=== PATIENT | male | born 1985 | race Caucasian/White ===

== ENCOUNTER 2021-06-09 16:39 | Emergency (ER) | payer OTHER, SELFPAY ==
[2021-06-09 17:04] VITALS: BP 149/101; PULSE 105; RESP 16; TEMP 36.9; O2SAT 96; BMI 44.3
[2021-06-09 19:57] VITALS: BP 147/111; PULSE 103; RESP 28; O2SAT 95
[2021-06-09 20:01] VITALS: BP 146/94
[2021-06-09 20:03] VITALS: O2SAT 95
--- NOTE | 2021-06-09 20:31 | ED_ITS ---
HPI - COVID General: Chief Complaint: COVID symptoms Stated Complaint: COVID EXPOSURE/SOB/FEVER Time Seen by Provider: 06/09/21 19:46 Triage information: Has fever, cough or shortness of breath . Exposure to COVID + person last 14 days History of Present Illness: HPI Narrative: Patient is a 35-year-old male comes to the ED after being exposed to Covid. Patient says he lives with his girlfriend who just tested positive for COVID-19. Today he noticed he developed a fever felt some mild occasional shortness of breath today. He also endorses having some mild body aches as well. Patient said he needed to be Covid tested for work. COVID 19 common symptoms: positive fever(s), dyspnea (Occasional) and body aches; negative chills, non-productive cough, productive cough, fatigue, headache(s), throat pain, nasal congestion, nausea, vomiting or diarrhea COVID 19 other sytmptoms: negative chest pain COVID Results: SARS-CoV-2 Antigen (Rapid) Negative (Negative) 06/09/21 20:08 06/09/21 Nasal/Oral Coronavirus 2019 PCR Pending 06/09/21 20:40 06/09/21 Review of Systems Const: Reports: fever(s) and body aches; Denies: chills or fatigue Eyes: Denies: change in vision or eye discomfort ENMT: Denies: throat pain, odynophagia, nasal discharge or nasal congestion Card: Denies: chest pain, palpitations, edema, swelling of feet/ankles, dyspnea on exertion or orthopnea Resp: Reports: dyspnea (Occasional); Denies: productive cough or non-productive cough GI: Denies: abdominal pain, nausea, vomiting, diarrhea, constipation or hematochezia : Denies: flank pain, difficulty urinating, dysuria or hematuria Musc: Denies: neck pain, back pain or extremity swelling Skin/Breast: Denies: rash or new lesions Neuro: Denies: headache(s), numbness in extremities or weakness in extremities Physical Exam Const: COMMON NORMALS: no acute distress, patient oriented x3 and alert GENERAL APPEARANCE: cooperative NUTRITIONAL APPEARANCE: obese HENMT: COMMON NORMALS: normocephalic HEAD & SCALP: normocephalic MOUTH: Normal oral and palatal mucosa present THROAT: posterior oropharynx normal and uvula midline Eye: COMMON NORMALS: Equal, round and reactive pupils present PUPIL: Yes Equal, round and reactive pupils present Neck/C-Spine: COMMON NORMALS: supple GENERAL: Yes normal visual inspection Resp: COMMON NORMALS: normal respiratory effort, No retractions, No use of accessory muscles and clear to auscultation bilaterally EFFORT & INSPECTION: Yes able to speak in complete sentences, No tachypneic, No respiratory distress and No labored AUSCULTATION: clear to auscultation bilaterally Cardio: COMMON NORMALS: regular rate, regular rhythm, S1 normal heart sound present, S2 normal heart sound present, No gallops present (Cardio), No clicks present (Cardio), No murmurs present (Cardio) and Peripheral pulses 2+ throughout RATE: regular rate RHYTHM: regular rhythm HEART SOUNDS: S1 normal heart sound present and S2 normal heart sound present PERIPHERAL PULSES: Peripheral pulses 2+ throughout GI: COMMON NORMALS: Normal to inspection, nondistended, normoactive bowel sounds present, Soft to palpation, non-tender and no masses PALPATION: Yes Soft to palpation : COMMON NORMALS: Yes no CVA tenderness BLADDER/KIDNEY EXAM: Yes no CVA tenderness Back/Pelvis: COMMON NORMALS: no CVA tenderness Extremity: COMMON NORMALS: normal to inspection Neuro: COMMON NORMALS: patient oriented x3 and moves all extremities SENSORIUM/ORIENTATION: Yes alert Skin: GENERAL SKIN EXAM: dry skin Course Vital Signs: Vital signs: Vital Signs Temperature 98.4 F 06/09/21 17:04 Pulse Rate 109 H 06/09/21 21:58 Respiratory Rate 19 H 06/09/21 21:58 Blood Pressure 150/90 06/09/21 21:58 Pulse Oximetry 93 06/09/21 21:58 MDM - COVID MDM Narrative: Medical decision making narrative: Patient is a 35-year-old male comes to the ED after being exposed to COVID-19. Patient's girlfriend just tested positive for COVID-19. Today he has experienced fever, body aches and has mild episodes of some shortness of breath. Vitals are stable. Exam shows obese 35-year-old male that is in no acute distress or pain. No signs of any acute respiratory distress. Lungs are clear to auscultation bilaterally. Influenza negative and rapid Covid test negative. Covid PCR is pending. Chest x-ray shows no acute findings. Patient was diagnosed with a viral syndrome and discharged home. He was told that lab will contact him with Covid PCR results in the next 2 to 3 days. Return to ED precautions given. Follow-up with PCP in 7 to 10 days for reevaluation. Patient understood agree with plan. Lab Data: Labs: Lab Results 06/09/21 06/09/21 20:08 20:08 Influenza Type A A g Negative (Negative) Influenza Type B A g Negative (Negative) SARS-CoV-2 Ag (Rap id) Negative (Negative) Imaging Data: CXR: Attestation: I personally reviewed and interpreted this imaging study as follows: My impression: Chest x-ray showed no acute findings. Radiologist's impression: [address] [id number] ReportSigned Patient: Maurice Puckett #: [id number]: 1985Acct#:[id number]/Sex: 35 / MADM Date: 06/09/21Loc: ERRoom/Bed:Attending Dr: Ordering Provider/Ordering MD: Hussein Osborne Date of Service: 06/09/21 Procedure(s): XR chest 1V portable [id number] Accession Number(s): [id number] Report Number: [id number] PROCEDURE INFORMATION: Exam: XR Chest Exam date and time: 06/09/2021 8:32 PM Age: 35 years old Clinical indication: Shortness of breath; Additional info: SOB TECHNIQUE: Imaging protocol: XR of the chest. Views: 1 view. COMPARISON: No relevant prior studies available. FINDINGS: Lungs: Unremarkable. No consolidation. Pleural spaces: Unremarkable. No pleural effusion. No pneumothorax. Heart/Mediastinum: Cardiomegaly. Bones/joints: Unremarkable. XR/XR chest 1V portable [id number] IMPRESSION: Cardiomegaly, lungs are clear Radiation Dose CTDIVOL = (mGy): DLP = (mGy-cm) Dictated By:Chris Beltran MDSigned By:Chris Beltran MDSigned Date/Time:06/09/211DD/ 31 COVID Results: SARS-CoV-2 Antigen (Rapid) Negative (Negative) 06/09/21 20:08 06/09/21 Nasal/Oral Coronavirus 2019 PCR Pending 06/09/21 20:40 06/09/21 Discharge Plan Discharge Patient Disposition: Home Clinical Impression: Viral syndrome Condition: Stable Discharge Orders: Discharge ED (Routine); Ordered 06/09/21 Ordered By: Hussein Osborne Discharge Diet: Regular Discharge Activity: Resume usual activity Patient Instructions: Viral Syndrome (ED) Activity Restrictions/Additional Instructions: Follow-up with medical provider as directed in 5 to 7 days reevaluation. The lab will contact you the next couple days to let you know about your COVID-19 PCR test results. If you do test positive talk to your primary care doctor about monoclonal antibody infusions. Take Tylenol or Motrin if you have any fevers. Return to the ER or your medical provider if condition worsens. Please read and understand discharge instructions. Thank you for choosing [facility] for your healthcare needs today. Please realize this is an emergency room and that we are providing you with a medical screening exam and this may not be complete and all inclusive of all the testing and or work up that you may need to determine your ailment or severity of your illness. It is very important that you follow up as instructed or that you return to the Emergency Department should you have concerns or if your cond ition changes or worsens in any way. Coding Level of Care Code ED Community Facilitator for Arnulfo Ying Exam Comprehensive
[2021-06-09 20:34] LABS: SARS Covid-2 Antigen Negative (Negative)
[2021-06-09 20:50] LABS: Influenza A by IFA Negative (Negative); Influenza B by IFA Negative (Negative)
[2021-06-09 21:58] VITALS: BP 150/90; PULSE 109; RESP 19; O2SAT 93
[2021-06-11 13:43] LABS: Coronavirus Test Green County Not Detected
== END 2021-06-09 21:59 | disposition home or self-care (01) ==
PROVIDERS: Physician Assistant; Emergency Provider Physician Assistant
DX: B34.9 Viral infection, unspecified (principal); Z20.822 Contact with and (suspected) exposure to COVID-19
CPT/HCPCS: 71045; 87426; 87635; 87804; 99283

== ENCOUNTER 2021-08-03 11:25 | Outpatient (CLI) | payer OTHER, SELFPAY ==
[2021-08-03 06:53] VITALS: BMI 44.3
[2021-08-03 11:35] VITALS: BP 119/81; PULSE 96; RESP 18; TEMP 36.8; O2SAT 96
[2021-08-03 12:39] VITALS: BP 105/98; PULSE 87; RESP 20; TEMP 36.2; O2SAT 98
[2021-08-03 12:46] VITALS: BP 105/98; PULSE 87; RESP 20; TEMP 36.2; O2SAT 97
--- NOTE | 2021-08-03 17:35 | PC.NURSE ---
Rapid Response; Pt given education, with consent forms signed. Infusion initiated after IV access obtained. Infusion completed over 30 mins as directed. After infusion completed, RN at pt's side obtaining post infusion VS. Pt VS stable, but pt color looked extremely pale compared to baseline assessment. Cardiac, respiratory, and neuro assessment completed. Pt A&O4, with verbalized c/o not feeling well with worsening feelings. RN remained at side, and instructed additional RN to call rapid response over head. Dr Carmen from ED, responded and came to pts' side. New instructions and recommendations for pt to be transported to ED for further evaluation of pt current condition, after assessment completed and update/hx given to MD. Pt taken to ED by ED staff X3 via wheelchair.
== END 2021-08-03 11:26 | disposition home or self-care (01) ==
LOC: OPS 11:28
PROVIDERS: Visit Provider Family Medicine
DX: U07.1 COVID-19 (principal)
CPT/HCPCS: 96365

== ENCOUNTER 2021-08-03 13:15 | Emergency (ER) | payer BC, SELFPAY ==
[2021-08-03 13:32] VITALS: BP 128/75; PULSE 94; RESP 18; O2SAT 93
[2021-08-03 13:35] VITALS: O2SAT 94
--- NOTE | 2021-08-03 13:47 | XR_ITS ---
WS: [id number] Exam: XR chest 1V portable [id number] Date/Time of Exam: 08/03/2021 1:47 PM Reason For Exam: sob covid + Comparison 06/09/2021. There are mild patchy groundglass infiltrates scattered throughout both lung suspicious for pneumonia . Cardiomediastinal silhouette is unremarkable for radiographic technique. No pneumothorax or pleural effusion. Regional bony elements are intact. Monitoring leads superimpose the chest. XR/XR chest 1V portable [id number] IMPRESSION: 1. Scattered mild groundglass densities in both lung suspicious for developing pneumonia.
--- NOTE | 2021-08-03 13:48 | W.ED.COVID ---
HPI - COVID General: Chief Complaint: COVID symptoms Stated Complaint: covid reaction Time Seen by Provider: 08/03/21 13:24 Triage information: Has fever, cough or shortness of breath. Exposure to COVID + person last 14 days History of Present Illness: HPI Narrative: 35-year-old male says he has been sick mainly since last 4 days ago. He tested positive for COVID-19 on Monday he complains of chills, fevers up to 102, and some shortness of breath at home. He has been monitoring his pulse ox, and it gets as low as 85, but comes back to the low to mid 90s usually. No vomiting. Has had a cough. He was in the infusion center today, getting the monoclonal antibody infusion, and began to get more short of breath, weak, and dizzy. He was sent here for evaluation MD complaint: known COVID positive Prior covid testing: yes, results known Prior testing date: 07/30/21 COVID 19 common symptoms: positive fever(s), chills, cough, non-productive cough, dyspnea, fatigue, body aches, headache(s), throat pain and nausea; negative vomiting or diarrhea COVID 19 other sytmptoms: positive chest pressure Onset (ago): day(s) Severity: moderate Pertinent comorbid conditions: obesity Treatment prior to arrival: acetaminophen and ibuprofen COVID Results: SARS-CoV-2 Antigen (Rapid) Negative (Negative) 06/09/21 20:08 06/09/21 Nasal/Oral Coronavirus 2019 PCR Not detected 06/09/21 20:40 06/09/21 Review of Systems Const: Reports: fever(s), chills, body aches and fatigue ENMT: Reports: throat pain Resp: Reports: dyspnea and non-productive cough GI: Reports: nausea; Denies: vomiting or diarrhea Neuro: Reports: headache(s) Physical Exam Const: COMMON NORMALS: patient oriented x3 and alert GENERAL APPEARANCE: cooperative NUTRITIONAL APPEARANCE: obese HENMT: COMMON NORMALS: normocephalic, atraumatic and Normal external nose present HEAD & SCALP: normocephalic and atraumatic FACE & SINUS: normal facial exam NOSE: Normal external nose present Chest: COMMONS NORMALS: normal inspection of the chest Resp: COMMON NORMALS: clear to auscultation bilaterally EFFORT & INSPECTION: Yes tachypneic and No respiratory distress AUSCULTATION: clear to auscultation bilaterally Cardio: COMMON NORMALS: regular rate and regular rhythm RATE: regular rate RHYTHM: regular rhythm GI: COMMON NORMALS: Normal to inspection, nondistended, normoactive bowel sounds present and Soft to palpation PALPATION: Yes Soft to palpation Neuro: COMMON NORMALS: patient oriented x3 SENSORIUM/ORIENTATION: Yes alert Course Vital Signs: Vital signs: Vital Signs Pulse Rate 94 08/03/21 13:32 Respiratory Rate 18 08/03/21 13:32 Blood Pressure 128/75 08/03/21 13:32 Pulse Oximetry 93 08/03/21 13:32 MDM - COVID MDM Narrative: Medical decision making narrative: Room air saturations have been 90 to 94% on room air here. His heart rate is around 100. He does look uncomfortable. No sign of toxic or allergic reaction. EKG shows sinus rhythm with nonspecific ST changes. There is no complaint of chest pain. His oxygen saturations on presentation to the infusion center were 85 to 86%. He has noticed these at home. He will go home on home oxygen. Treatment with dexamethasone, as his chest x-ray shows bilateral groundglass pneumonia. he knows to return for any worsening symptoms COVID Results: SARS-CoV-2 Antigen (Rapid) Negative (Negative) 06/09/21 20:08 06/09/21 Nasal/Oral Coronavirus 2019 PCR Not detected 06/09/21 20:40 06/09/21 Discharge Plan Discharge Patient Disposition: Home Clinical Impression: Pneumonia due to 2019 novel coronavirus Condition: Stable Prescriptions: New doxycycline hyclate 100 mg capsule 100 mg PO BID 7 Days Qty: 14 RF: 0 dexamethasone 6 mg tablet 6 mg PO DAILY Qty: 5 RF: 0 hydrocodone-acetaminophen 5-325 mg tablet 1 tab PO Q8H PRN (Reason: pain) Qty: 7 RF: 0 No Action metoprolol tartrate 100 mg tablet RF: 0 omeprazole 40 mg capsule,delayed release(DR/EC) RF: 0 clonidine HCl 0.2 mg tablet RF: 0 losartan 100 mg tablet RF: 0 Discharge Orders: Discharge ED (Routine); Ordered 08/03/21 Ordered By: Dyllan Dietrich Other Ambulatory Orders: DME: Oxygen (Order) Location: None Selected Ordered By: Dyllan Dietrich Patient Instructions: Opioid Safety Activity Restrictions/Additional Instructions: Home medical equipment will help set up your home oxygen. Medications as directed. Return for worsening shortness of breath despite treatment with oxygen and medication, chest discomfort, vomiting liquids or medications, lethargy, mental status changes, or any other concerning symptoms. Coding Level of Care Code ED Accounting Machine Operator for Arnulfo Fwd Exam Detailed
--- NOTE | 2021-08-03 13:51 | ECG_ITS ---
[facility] Test Date: 2021-08-03 Pat Name: Maurice Puckett Department: Room: Gender: Male Natural Gas Inspector: : 1985 Requested By: Dyllan Savage Order Number: [id number] Grant MD: Jese Mitchell M.D. Measurements Intervals [place] Rate: 96 P: 33 [place]: 170 QRS: 65 QRSD: 89 T: 31 QT: 328 QTc: 415 Interpretive Statements SINUS RHYTHM NONSPECIFIC T-WAVE ABNORMALITY No previous ECG available for comparison Electronically Signed On 08-04-2021 13:56:20 PARKS WORKER by Jese Mitchell M.D. [email or web address] [email or web address] [email or web address] [email or web address] [email or web address]/[id number]
[2021-08-03] MEDS: dexamethasone 4 mg Tablet 10 MG PO (14:38)
[2021-08-03] MEDS: diphenhydrAMINE 50 mg Capsule PO (14:39)
== END 2021-08-03 18:05 | disposition home or self-care (01) ==
PROVIDERS: Emergency Provider Emergency Medicine
DX: U07.1 COVID-19 (principal); J12.82 Pneumonia due to coronavirus disease 2019
CPT/HCPCS: 71045; 93005; 99283; J8540; Q0163

== ENCOUNTER 2022-03-08 10:53 | Emergency (ER) | payer BC, SELFPAY ==
[2022-03-08 10:59] VITALS: BP 152/97; PULSE 52; RESP 18; TEMP 36.8; O2SAT 100; BMI 43.7
[2022-03-08 11:03] VITALS: BP 150/80; PULSE 52; RESP 18; TEMP 36.8; O2SAT 100
--- NOTE | 2022-03-08 11:18 | W.ED.EXTPRO ---
HPI - Extremity Problem General: Chief complaint: Extremity Problem,Nontraumatic Stated complaint: Left Leg pain Time Seen by Provider: 03/08/22 11:08 Source: patient Mode of arrival: ambulatory Limitations: no limitations History of Present Illness: Patient is a nice 36-year-old male who presents to ED today with a complaint of left leg pain/burning. He states he is having burning to the posterior aspect of his left thigh and then states he feels like the anterior aspect of his leg from his knee to his ankle is numb. Patient does state recently he had an incident where the left knee buckled and gave out. He is status post ACL and MCL repair on the knee. He has not noticed any knee swelling. No swelling to the extremity. He has not noticed any color or temperature changes. He denies back pain. MD Complaint: extremity pain Onset (ago): day(s) Pain Consistency: constant Location: left and lower extremity Quality: burning Relieving factors: nothing and other Exacerbating factors: nothing Associated symptoms: Reports no associated symptoms; Deny chest pain or fever(s) Review of Systems Const: Denies: fever(s), chills, body aches, fatigue or malaise Card: Denies: chest pain Resp: Denies: dyspnea GI: Denies: abdominal pain : Denies: flank pain, dysuria or hematuria Musc: Reports: extremity pain; Denies: neck pain, back pain, extremity swelling, joint pain, joint swelling, joint redness or joint warmth Neuro: Reports: sensory changes; Denies: headache(s), weakness in extremities or difficulty walking Physical Exam Const: COMMON NORMALS: no acute distress, patient oriented x3, no limitations and alert GENERAL APPEARANCE: cooperative NUTRITIONAL APPEARANCE: obese Back/Pelvis: COMMON NORMALS: thoracic and lumbar spine normal to inspection, no thoracic nor lumbar tenderness and thoraco-lumbar ROM normal THORACIC SPINE/UPPER BACK: Yes normal to inspection and No thoracic spinal tenderness LUMBAR SPINE/LOWER BACK: Yes normal to inspection and No lumbar spinal tenderness PELVIS: Yes buttock abnormal Buttock abnormal laterality: left Left buttock abnormal details: tenderness SACROILIAC JOINTS: Yes SI joints normal SACRUM: no tenderness COCCYX: no tenderness Extremity: COMMON NORMALS: full ROM, capillary refill normal, no joint enlargement, no clubbing, cyanosis or edema, no calf tenderness and no pedal edema GENERAL: Yes normal exam except as noted LEFT LOWER EXTREMITY: Yes knee joint and Yes lower leg OTHER: previous scars to L knee from ligament repairs; no knee swelling, redness or warmth; no obvious joint laxity; no swelling/color/temp changes to L LE when compared to R; no calf swelling; negative Pema's; palpable DP/PT pulses with brisk cap refill; complains of altered sensation to anterior L LE from knee to ankle but otherwise sensation equal bilaterally Neuro: RACHANA COMA SCALE: document GCS findings Rachana coma scale eye opening: Spontaneous Rachana coma scale verbal response: Orientated Rachana coma scale motor response: Obey commands Rachana coma scale total score: 15 COMMON NORMALS: patient oriented x3, moves all extremities, no focal motor deficits and gait normal SENSORIUM/ORIENTATION: Yes alert Skin: COMMON NORMALS: no rashes or lesions noted GENERAL SKIN EXAM: no rashes or lesions noted Course Vital Signs: Vital signs: Vital Signs Temperature 98.2 F 03/08/22 12:17 Pulse Rate 55 L 03/08/22 12:17 Respiratory Rate 18 03/08/22 12:17 Blood Pressure 152/78 03/08/22 12:17 Pulse Oximetry 100 03/08/22 12:17 Oxygen Delivery Me thod 03/08/22 11:03 MDM - Extremity (Nontraumatic) Medical Decision Making Patient complains of a burning sensation to the posterior lateral aspect of his left leg and some altered sensation to the anterior aspect of the lower portion of the left leg. I do have any concern at this time for DVT, acute limb ischemia, CVA/TIA. Strength intact. Gait normal. Will treat with NSAIDS, muscle relaxers, steroids and recommend he follow up with PCP in 1-2 weeks if symptoms do not improve. Discharge Plan Discharge Patient Disposition: Home Clinical Impression: Acute left lumbar radiculopathy Condition: Stable Prescriptions: New methocarbamol 500 mg tablet 1,000 mg PO Q8H Qty: 30 0RF Medrol (Ken) 4 mg tablets,dose pack See Rx Instructions .ROUTE .COMPLEX Qty: 21 0RF Rx Instructions: orally per package directions diclofenac potassium 50 mg tablet 50 mg PO TID PRN (Reason: pain) Qty: 20 0RF Discontinued dexamethasone 6 mg tablet 6 mg PO DAILY Qty: 5 0RF hydrocodone-acetaminophen 5-325 mg tablet 1 tab PO Q8H PRN (Reason: pain) Qty: 7 0RF No Action metoprolol tartrate 100 mg tablet omeprazole 40 mg capsule,delayed release(DR/EC) clonidine HCl 0.2 mg tablet losartan 100 mg tablet Discharge Orders: Discharge ED (Routine); Ordered 03/08/22 Ordered By: Ilana Noriega Patient Instructions: Lumbar Radiculopathy (ED) Coding Level of Care Code ED Concrete Grinder Operator for Sheyg Fwd Exam Detailed
[2022-03-08 11:36] VITALS: PULSE 50
[2022-03-08] MEDS: dexamethasone 10 mg/mL INJ 8 MG IM (11:55)
[2022-03-08] MEDS: ketorolac 60 mg/2 mL INJ IM (11:57)
[2022-03-08 12:17] VITALS: BP 152/78; PULSE 55; RESP 18; TEMP 36.8; O2SAT 100
== END 2022-03-08 12:19 | disposition home or self-care (01) ==
PROVIDERS: Emergency Provider Physician Assistant
DX: M54.16 Radiculopathy, lumbar region (principal)
CPT/HCPCS: 96372; 99284; J1100; J1885